=== PATIENT | female | born 1985 | race Caucasian/White ===

== ENCOUNTER 2019-03-10 08:34 | Emergency (ER) | payer BC ==
[~2019-03-10] VITALS: Ht 157.5 cm; Wt 81.6 kg
[2019-03-10 08:42] VITALS: BP 137/90
--- NOTE | 2019-03-10 08:43 | NUR ---
PT AMB TO BED 7 WITH STEADY GAIT
--- NOTE | 2019-03-10 08:46 | NUR ---
DR JUÁREZ AT BEDSIDE
--- NOTE | 2019-03-10 08:50 | NUR ---
33 YR OLD AAO X4 PT SEND BY PMD DR SAMUELS W/ C/O BILATERAL LE SWELLING X 3 DAYS. DENIES VAGINAL BLEEDING, OR ABDOMINAL PAIN. APPROX 38 WEEKS, 2, 1 . BLE SWELLING NON PITTING EDEMA. LMP "JUNE"
[2019-03-10 10:01] VITALS: BP 125/81
--- NOTE | 2019-03-10 10:01 | NUR ---
Patient discharged with v/s stable. Written and verbal after care instructions given and explained. Patient verbalized understanding. Ambulatory with steady gait. All questions addressed prior to discharge. Advised to follow up with PMD.
== END 2019-03-10 10:01 | disposition home or self-care (01) ==
LOC: MED 08:34
DX: O26.893 Other specified pregnancy related conditions, third trimester (principal); R60.0 Localized edema; Z3A.38 38 weeks gestation of pregnancy
CPT/HCPCS: 93971; 99284; Q0092

== ENCOUNTER 2019-03-15 08:00 | Inpatient (IN) | payer BC ==
[~2019-03-15] VITALS: Ht 157.5 cm; Wt 81.6 kg
--- NOTE | 2019-03-15 08:48 | NUR ---
PATIENT HAS BEEN SCREENED AND CATEGORIZED LOW NUTRITION RISK. PATIENT WILL BE SEEN WITHIN 7 DAYS OF ADMISSION. 03/21/[address]
[2019-03-15] MEDS ORDERED: CARBOPROST 250 MCG/ML AMP IM PRN (10:05)
[2019-03-15] MEDS ORDERED: OXYTOCIN 20 UNITS in LACTATED RINGERS 1,000 ML IV SCH (10:05)
[2019-03-15] MEDS ORDERED: PROMETHAZINE 25 MG/ML VIAL IVP PRN (10:05)
[2019-03-15] MEDS ORDERED: NALBUPHINE 10 MG/ML AMP IVP PRN (10:05)
[2019-03-15] MEDS ORDERED: METHYLERGONOVINE 0.2 MG/ML AMP IM PRN (10:05)
[2019-03-15] MEDS ORDERED: MISOPROSTOL 25 MCG TAB VG PRN (10:15)
[2019-03-15] MEDS: LACTATED RINGERS 1,000 ML IV SCH ×2 (11:44→23:40)
[2019-03-15 11:51] LABS: BASOPHILS % (AUTO) 0.3 % (0.0-2.0); EOSINOPHILS # (AUTO) 0.1 K/uL (0-0.4); EOSINOPHILS % (AUTO) 1.9 % (0.0-4.0); HEMATOCRIT 38.2 % (36-48); HEMOGLOBIN 12.8 g/dL (12.0-16.0); LYMPHOCYTES # (AUTO) 1.1 K/uL (2.5-16.5); LYMPHOCYTES % (AUTO) 15.2 % (20.5-51.1); MEAN CORPUSCULAR HEMOGLOBIN 33 pg (27-31); MEAN CORPUSCULAR HGB CONC 34 g/dL (33-37); MEAN CORPUSCULAR VOLUME 99.5 fL (80-94); MONOCYTES # (AUTO) 0.4 K/uL (0.8-1.0); MONOCYTES % (AUTO) 4.9 % (1.7-9.3); NEUTROPHILS # (AUTO) 5.9 K/uL (1.8-7.7); NEUTROPHILS % (AUTO) 77.7 % (42.2-75.2); PLATELET COUNT (AUTO) 114 K/uL (140-450); RED BLOOD CELL COUNT(AUTO) 3.84 MIL/uL (4.20-5.40); WHITE BLOOD COUNT (AUTO) 7.6 K/uL (4.8-10.8)
[2019-03-15 11:55] LABS: ANION GAP 15.1 (8-16); CARBON DIOXIDE 23.8 mmol/L (21-32); CREATININE 0.7 mg/dL (0.6-1.3); POTASSIUM 3.9 mmol/L (3.5-5.1)
[2019-03-15 12:01] LABS: ALBUMIN 2.9 g/dL (3.4-5.0); TOTAL BILIRUBIN 0.7 mg/dL (0.0-1.0)
[2019-03-15 12:01] LABS: APPEARANCE,URINE SL CLOUDY (CLEAR); BILIRUBIN,URINE NEGATIVE (NEGATIVE); BLOOD, URINE 2+ (NEGATIVE); COLOR,URINE YELLOW (YELLOW); LEUKOCYTE ESTERASE ,URINE 1+ (NEGATIVE); NITRITE, URINE NEGATIVE (NEGATIVE); UGLUCOSE NEGATIVE (NEGATIVE)
[2019-03-15 12:45] LABS: RBC,URINE 0-5 /HPF (0-5); WBC,URINE 0-5 /HPF (0-5)
[2019-03-15] MEDS ORDERED: OXYTOCIN 20 UNITS/LR PREMIX 1,000 ML IV ONE (20:33)
[2019-03-15] MEDS ORDERED: ROPIVACAINE 0.2%/NS PREMIX 100 ML EPI ONE (23:50)
[2019-03-15] MEDS ORDERED: EPIDURAL KEYS MC ONE (23:53)
[2019-03-16] MEDS: LACTATED RINGERS 1,000 ML IV SCH (01:13)
[2019-03-16] MEDS ORDERED: OXYTOCIN 10 UNITS/ML VIAL IM PRN (03:05)
[2019-03-16] MEDS ORDERED: METHYLERGONOVINE 0.2 MG/ML AMP IM PRN (03:05)
[2019-03-16] MEDS ORDERED: METHYLERGONOVINE 0.2 MG TAB PO PRN (03:05)
[2019-03-16] MEDS ORDERED: MEASLES, MUMPS, AND RUBELLA 1 VIAL SQVAC PRN (03:05)
[2019-03-16] MEDS ORDERED: BISACODYL 5 MG TABEC PO PRN (03:05)
[2019-03-16] MEDS ORDERED: BENZOCAINE/MENTHOL 20%-0.5% 60 GM CAN TP PRN (03:05)
[2019-03-16] MEDS ORDERED: IBUPROFEN 800 MG TAB PO PRN (03:05)
[2019-03-16] MEDS ORDERED: INFLUENZA VACCINE QUAD 0.5 ML SYR IMVAC PRN (11:05)
[2019-03-17 10:53] LABS: HEMATOCRIT 36.1 % (36-48); HEMOGLOBIN 12.1 g/dL (12.0-16.0)
== END 2019-03-17 16:20 | disposition home or self-care (01) | DRG 805 ==
LOC: MLD 08:00 → MFCC 03-16 05:05
PROVIDERS: ADMIT Obstetrics & Gynecology; ATTEND Obstetrics & Gynecology
PROC: 10E0XZZ Delivery of Products of Conception, External Approach (ICD-10-PCS; principal; 2019-03-16)
PROC: 3E0P7VZ Introduction of Hormone into Female Reproductive, Via Natural or Artificial Opening (ICD-10-PCS; 2019-03-16)
PROC: 00HU33Z Insertion of Infusion Device into Spinal Canal, Percutaneous Approach (ICD-10-PCS; 2019-03-16)
PROC: 3E0R3BZ Introduction of Anesthetic Agent into Spinal Canal, Percutaneous Approach (ICD-10-PCS; 2019-03-16)
DX: O36.5930 Maternal care for other known or suspected poor fetal growth, third trimester, not applicable or unspecified (principal); O45.93 Premature separation of placenta, unspecified, third trimester; Z37.0 Single live birth; Z3A.39 39 weeks gestation of pregnancy
CPT/HCPCS: 36415; 59200; 59409; 76815; 80053; 81001; 85018; 85025; 86592; 86870; 86886; 86900; 86901; 87086; J2590; J2795; J7120; Q0092